=== PATIENT | female | born 1970 | race Caucasian/White ===

== ENCOUNTER → 2017-03-15 | Outpatient (CLI) | payer OTHER ==
[~2017-03-15] MED LIST: DRV100; WELLBUTRIN
[2017-03-15 12:55] LABS: BASO % 0.2 %; BASO ABS # 0.02 K/uL (0-0.2); COMPLETE YES; EOS % 2.2 %; HEMATOCRIT 35.1 % (37-47); IG% 0.3 %; LYMPH % 15.6 %; LYMPH ABS # 1.71 K/uL (1.2-3.4); MEAN CELL VOLUME 75.5 fL (80-100); MEAN CORPUSCULAR HEMOGLOBIN 23.7 pg (25-34); MEAN CORPUSCULAR HGB CONC 31.3 g/dl (32-36); MEAN PLATELET VOLUME 10.7 fL (7.4-10.4); MONO % 6.9 %; NEUT % 74.8 %; PLATELET COUNT 348 K/uL (130-400); RED BLOOD COUNT 4.65 M/uL (4.2-5.4); WHITE BLOOD COUNT 10.98 K/uL (4.8-10.8)
[2017-03-15 13:24] LABS: ALT/SGPT 18 U/L (12-78); AST/SGOT 13 U/L (15-37); BLOOD UREA NITROGEN 15 mg/dl (7-18); BUN/CREATININE RATIO 18.6 (10-20); CALCIUM 8.7 mg/dl (8.5-10.1); CARBON DIOXIDE 23 mmol/L (21-32); CHLORIDE 110 mmol/L (98-107); CHOLESTEROL 167 mg/dl (0-200); CREATININE 0.83 mg/dl (0.60-1.20); GLUCOSE 90 mg/dl (70-99); SODIUM 140 mmol/L (136-145); TRIGLYCERIDES 67 mg/dl (0-150); VERY LOW DENSITY LIPOPROT CALC 13 mg/dl
[2017-03-15 13:34] LABS: ALKALINE PHOSPHATASE 91 U/L (45-117); CHOLESTEROL/HDL RATIO 2.7; HDL CHOLESTEROL 62 mg/dl; LDL CHOLESTEROL CALCULATED 92 mg/dl
== END | disposition home or self-care (01) ==
LOC: C.LABPVFM 11:00
PROVIDERS: ATTEND Nurse Practitioner Family
DX: Z00.00 Encounter for general adult medical examination without abnormal findings (principal); R53.83 Other fatigue

== ENCOUNTER → 2017-03-19 | Outpatient (CLI) | payer OTHER ==
[2017-03-19 18:23] LABS: FERRITIN 8.7 ng/ml (8.0-388.0)
== END | disposition home or self-care (01) ==
LOC: C.LABPVFM 15:32
PROVIDERS: ATTEND Nurse Practitioner Family
DX: E55.9 Vitamin D deficiency, unspecified (principal); D64.9 Anemia, unspecified

== ENCOUNTER 2017-03-23 20:13 | Emergency (ER) | payer OTHER ==
[~2017-03-23] VITALS: Ht 170.2 cm; Wt 90.4 kg
[2017-03-23 20:16] VITALS: Ht 170.2 cm; Wt 90.4 kg
[2017-03-23] MEDS ORDERED: SODIUM CHLORIDE 0.9% 1000ML 2,000 ML IV STA (20:40)
[2017-03-23] MEDS ORDERED: ONDANSETRON INJ 2 MG/ML 2 ML VIAL IV STA (20:40)
[2017-03-23 20:50] LABS: BASO % 0.5 %; BASO ABS # 0.06 K/uL (0-0.2); EOS % 1.5 %; HEMATOCRIT 38.1 % (37-47); IG% 0.3 %; LYMPH % 18.2 %; LYMPH ABS # 1.99 K/uL (1.2-3.4); MEAN CELL VOLUME 76.4 fL (80-100); MEAN CORPUSCULAR HEMOGLOBIN 23.8 pg (25-34); MEAN CORPUSCULAR HGB CONC 31.2 g/dl (32-36); MEAN PLATELET VOLUME 10.5 fL (7.4-10.4); MONO % 8.7 %; NEUT % 70.8 %; PLATELET COUNT 388 K/uL (130-400); RED BLOOD COUNT 4.99 M/uL (4.2-5.4); WHITE BLOOD COUNT 10.93 K/uL (4.8-10.8)
[2017-03-23 21:01] LABS: URINE APPEARANCE CLEAR (CLEAR); URINE BILIRUBIN NEG (NEG); URINE COLOR YELLOW; URINE EPITHELIAL CELL AUTO 0-5 /lpf (0-5); URINE NITRITE NEG (NEG); URINE PH 6.5 (4.5-7.5); URINE SPECIFIC GRAVITY 1.011 (1.000-1.030); UROBILINOGEN NEG (NEG); ZZUR CULT IF INDIC CLEAN CATCH NO
[2017-03-23 21:04] LABS: BLOOD UREA NITROGEN 14 mg/dl (7-18); GLUCOSE 89 mg/dl (70-99)
[2017-03-23 21:05] LABS: ALT/SGPT 20 U/L (12-78); BUN/CREATININE RATIO 13.9 (10-20); CALCIUM 8.8 mg/dl (8.5-10.1); CARBON DIOXIDE 25 mmol/L (21-32); CHLORIDE 107 mmol/L (98-107); POTASSIUM 3.5 mmol/L (3.5-5.1); SODIUM 140 mmol/L (136-145)
--- NOTE | 2017-03-23 21:07 | DIAGNOSTIC IMAGING REPORT ---
CHEST ONE VIEW PORTABLE CLINICAL HISTORY: Shortness of breath. COMPARISON STUDY: No previous studies for comparison. FINDINGS: The lung volumes are normal. Lungs are clear. No pneumothorax or pleural effusion is present. Cardiac size is normal. Mediastinal contours are normal. There is no evidence of pulmonary edema. IMPRESSION: No acute cardiopulmonary findings. Electronically signed by: Todd Simpson M.D. 03/23/2017 9:05 PM Dictated Date/Time: 03/23/2017 9:05 PM
[2017-03-23 21:09] LABS: ALKALINE PHOSPHATASE 90 U/L (45-117); AST/SGOT 15 U/L (15-37)
[2017-03-23 21:17] LABS: MANUAL MICROSCOPIC REQUIRED? NO; REVIEW REQ? NO
[2017-03-23 21:25] LABS: ANISOCYTOSIS PRESENT; COMPLETE YES
[2017-03-23] MEDS ORDERED: MOME200A INH (22:09)
[2017-03-23] MEDS ORDERED: DILT1TAB50 PO (22:09)
[2017-03-23] MEDS ORDERED: QUET1TAB34 PO (22:09)
[2017-03-23] MEDS ORDERED: FERR1TAB61 PO (22:09)
[2017-03-23] MEDS ORDERED: ERGO500037 PO (22:09)
[2017-03-23 22:55] VITALS: BP 181/118; PULSE 98; TEMP 37.5; O2SAT 98
--- NOTE | 2017-03-24 00:44 | EMERGENCY ROOM VISIT NOTE ---
History Report prepared by Callie: Micheal Colón Under the Supervision of: Jimenez MuseO. First contact with patient: 20:24 Chief Complaint: HYPERTENSION Stated Complaint: POSSIBLE HEART ATTACK History of Present Illness The patient is a 46 year old female who presents to the Emergency Room with complaints of constant hypertension beginning about 2 hours ago. The patient states her blood pressure medication was switched from Cardizem to Diltazem. She reports since the switch, her hypertension has not been controllable. The patient notes she became short of breath and nauseous when her blood pressure mary earlier. She states she has a history of COPD, so she used her inhaler, and her shortness of breath resolved. She notes her shortness of breath was her typical asthma flare. This was unchanged in any way. The patient reports she just started her menstrual period, and she did not know if this was the cause. She notes she has a history of hypertension, Bipolar disorder, and she is a current smoker. Pt denies headache, rashes, change in vision, fevers, chest pain, vomiting, diarrhea, pain with urination, recent trips, recent surgery, edema to her legs, coughing up blood, and sorethroat. She also denies a history of diabetes and high cholesterol. She denies any cough, runny nose or abdominal pain. She denies any fevers. No open wounds or sores. Source of History: patient Onset: 2 hours ago Position: other (global) Quality: other (hypertension) Timing: constant Associated Symptoms: + nausea, No fevers, No headache, No sorethroat, No chest pain, No SOB (resolved), No vomiting, No diarrhea, No rash Note: Denies: change in vision, pain with urination, recent trips, recent surgery, edema to her legs, coughing up blood Review of Systems See HPI for pertinent positives & negatives. A total of 10 systems reviewed and were otherwise negative. Past Medical & Surgical Medical Problems: (1) Asthma (2) Bleeding (3) Empyema (4) HTN (hypertension) (5) Kidney stone Family History Diabetes mellitus Heart disease Hypertension Kidney disease Kidney stones Social History Smoking Status: Current Every Day Smoker Smokeless Tobacco Use: No Alcohol Use: occasionally Marital Status: Occupation Status: unemployed Current/Historical Medications Scheduled Diltiazem HCl Coated Beads (Diltiazem HCl ER), 1 TAB PO DAILY Ergocalciferol (Vitamin D 11551 Unit), 50,000 UNIT PO WK Ferrous Sulfate (Iron), 1 TAB PO BID Mometasone Furoate-Formoterol (Dulera 200/5 Mcg), 2 PUFFS INH BID Quetiapine Fumarate (Seroquel), 100 MG PO DAILY Allergies Coded Allergies: Codeine (Unverified Allergy, Unknown, HIVES, 07/14/09) Sulfa Drugs (Unverified Allergy, Unknown, HIVES, 07/14/09) Uncoded Allergies: SULFA, SHELLFISH, TYLENOL #3 (Allergy, Unknown, 11/20/02) Physical Exam Vital Signs Date Time Temp Pulse Resp B/P (MAP) Pulse Ox O2 Delivery O2 Flow Rate FiO2 03/23/17 22:55 37.5 98 21 170/123 98 181/118 03/23/17 22:00 93 16 181/121 98 Room Air 03/23/17 21:07 96 18 199/122 96 190/115 03/23/17 20:41 101 03/23/17 20:16 37.9 116 16 175/123 99 Room Air Physical Exam GENERAL: Sitting up in bed, no distress, non-toxic EYE EXAM: normal conjunctiva OROPHARYNX: no exudate, no erythema, lips, buccal mucosa, and tongue normal and mucous membranes are moist NECK: supple, no nuchal rigidity, no adenopathy, non-tender LUNGS: Clear to auscultation. Normal chest wall mechanics HEART: no murmurs, S1 normal and S2 normal ABDOMEN: abdomen soft, non-tender, normo-active bowel sounds, no masses, no rebound or guarding. BACK: Back is symmetrical on inspection and there is no deformity, no midline tenderness, no CVA tenderness. SKIN: no rashes and no bruising UPPER EXTREMITIES: upper extremities are grossly normal. LOWER EXTREMITIES: No pitting edema. NEURO EXAM: Normal sensorium, cranial nerves II-XII intact, normal speech, no weakness of arms, no weakness of legs. No drift. Finger to nose intact. Gross sensation intact. Medical Decision & Procedures ER Provider Diagnostic Interpretation: Radiology results as stated below per my review and the radiologist's interpretation: CHEST ONE VIEW PORTABLE CLINICAL HISTORY: Shortness of breath. COMPARISON STUDY: No previous studies for comparison. FINDINGS: The lung volumes are normal. Lungs are clear. No pneumothorax or pleural effusion is present. Cardiac size is normal. Mediastinal contours are normal. There is no evidence of pulmonary edema. IMPRESSION: No acute cardiopulmonary findings. Electronically signed by: Todd Simpson M.D. 03/23/2017 9:05 PM Dictated Date/Time: 03/23/2017 9:05 PM Laboratory Results 03/23/17 20:30 Red Blood Count 4.99, Mean Corpuscular Volume 76.4, Mean Corpuscular Hemoglobin 23.8, Mean Corpuscular Hemoglobin Concent 31.2, Mean Platelet Volume 10.5, Neutrophils (%) (Auto) 70.8, Lymphocytes (%) (Auto) 18.2, Monocytes (%) (Auto) 8.7, Eosinophils (%) (Auto) 1.5, Basophils (%) (Auto) 0.5, Neutrophils # (Auto) 7.74, Lymphocytes # (Auto) 1.99, Monocytes # (Auto) 0.95, Eosinophils # (Auto) 0.16, Basophils # (Auto) 0.06 03/23/17 20:30 Test 03/23/17 20:30 White Blood Count 10.93 K/uL (4.8-10.8) Red Blood Count 4.99 M/uL (4.2-5.4) Hemoglobin 11.9 g/dL (12.0-16.0) Hematocrit 38.1 % (37-47) Mean Corpuscular Volume 76.4 fL (80-100) Mean Corpuscular Hemoglobin 23.8 pg (25-34) Mean Corpuscular Hemoglobin Concent 31.2 g/dl (32-36) Platelet Count 388 K/uL (130-400) Mean Platelet Volume 10.5 fL (7.4-10.4) Neutrophils (%) (Auto) 70.8 % Lymphocytes (%) (Auto) 18.2 % Monocytes (%) (Auto) 8.7 % Eosinophils (%) (Auto) 1.5 % Basophils (%) (Auto) 0.5 % Neutrophils # (Auto) 7.74 K/uL (1.4-6.5) Lymphocytes # (Auto) 1.99 K/uL (1.2-3.4) Monocytes # (Auto) 0.95 K/uL (0.11-0.59) Eosinophils # (Auto) 0.16 K/uL (0-0.5) Basophils # (Auto) 0.06 K/uL (0-0.2) RDW Standard Deviation 54.3 fL (36.4-46.3) RDW Coefficient of Variation 20.0 % (11.5-14.5) Immature Granulocyte % (Auto) 0.3 % Immature Granulocyte # (Auto) 0.03 K/uL (0.00-0.02) Anisocytosis PRESENT Urine Color YELLOW Urine Appearance CLEAR (CLEAR) Urine pH 6.5 (4.5-7.5) Urine Specific [place] 1.011 (1.000-1.030) Urine Protein NEG (NEG) Urine Glucose (UA) NEG (NEG) Urine Ketones NEG (NEG) Urine Occult Blood NEG (NEG) Urine Nitrite NEG (NEG) Urine Bilirubin NEG (NEG) Urine Urobilinogen NEG (NEG) Urine Leukocyte Esterase TRACE (NEG) Urine WBC (Auto) 1-5 /hpf (0-5) Urine RBC (Auto) 0-4 /hpf (0-4) Urine Hyaline Casts (Auto) 0 /lpf (0-5) Urine Epithelial Cells (Auto) 0-5 /lpf (0-5) Urine Bacteria (Auto) NEG (NEG) Urine Test NEG (NEG) Anion Gap 8.0 mmol/L (3-11) Est Creatinine Clear Calc Drug Dose 81.2 ml/min Estimated GFR () 78.2 Estimated GFR (Non- 67.5 BUN/Creatinine Ratio 13.9 (10-20) Calcium Level 8.8 mg/dl (8.5-10.1) Total Bilirubin 0.3 mg/dl (0.2-1) Direct Bilirubin < 0.1 mg/dl (0-0.2) Aspartate Amino Transf (AST/SGOT) 15 U/L (15-37) Alanine Aminotransferase (ALT/SGPT) 20 U/L (12-78) Alkaline Phosphatase 90 U/L (45-117) Troponin I < 0.015 ng/ml (0-0.045) Total Protein 7.8 gm/dl (6.4-8.2) Albumin 4.0 gm/dl (3.4-5.0) Lipase 159 U/L (73-393) Laboratory results per my review. Medications Administered Medications (Trade) Dose Ordered Sig/Rian Route Start Time Stop Time Status Last Admin Dose Admin Sodium Chloride 2,000 ml @ 999 mls/hr Q2H1M STAT IV 03/23/17 20:40 03/23/17 22:40 DC 03/23/17 21:05 999 MLS/HR Ondansetron HCl (Zofran Inj) 4 mg NOW STAT IV 03/23/17 20:40 03/23/17 20:41 DC 03/23/17 21:06 4 MG ECG Indication: other (HTN) Rate (beats per minute): 102 Rhythm: sinus tachycardia Findings: no ectopy, other (normal axis) ED Course ED COURSE: Vital signs were reviewed and showed hypertension and tachycardia. The patients medical record was reviewed The above diagnostic studies were performed and reviewed. ED treatments and interventions as stated above. 2031: The patient was evaluated in room B09. A complete history and physical examination was performed. 2039: Ordered Ondansetron HCl 4mg IV, Sodium Chloride 2000 ml @ 999 mls/hr IV 2220: Upon reevaluation, the patient is feeling fine, anxious, and wants to go home. She declined a second troponin. I discussed my findings with the patient and she understands and agrees with the treatment plan. Based on the patients age, coexisting illnesses, exam and lab findings the decision to treat as an outpatient was made. The patient remained stable while under my care. The patient appeared well at the time of discharge. Medical Decision Differential diagnoses includes but is not limited to pneumonia, bronchitis, COPD/Asthma exacerbation, pneumothorax, pulmonary embolism, congestive heart failure, acute coronary syndrome. Patient is a 46-year-old female who presents to ER for hypertension. She was checking her blood pressure at home, was elevated. She does note that around 5 PM tonight she became short of breath. She notes it was one of her typical asthma flares that resolved with that treatment. Patient denies any chest pain. No weakness or numbness in arms legs. No confusion. CBC shows a white count of 10.9 thousand. BMP all LFTs, bilirubin and lipase was unremarkable. Troponin was negative. UA was negative. was negative. Chest x-ray was unremarkable. Patient blood pressure did trend down without intervention. She was slightly tachycardic. Each time someone entered the room she became very anxious as she notes she does not like hospitals. Her heart rate was in the 90s. Temperature was 37.7. She has absolutely no other symptoms. UA was negative. Chest x-ray unremarkable. No signs of infection. Does have a low- grade temperature but not technically a fever. Favor tachycardia secondary to anxiety as she is crying in the ER. She notes no shortness of breath since 5 PM. Recommended at least repeating a troponin but she requested to be discharged as she does not want to be her anymore as she is becoming more anxious. She was discharged following informed refusal of care. Discussed with Pt concerning signs and symptoms to watch out for. Pt was instructed to follow up with their PCP and discussed with the patient their option to return to the ED at anytime for persistent or worsening symptoms. The appropriate anticipatory guidance and out-patient management, including indications for return to the emergency department, were explained at length to the patient and understood. Medication Reconcilliation Current Medication List: was personally reviewed by me Blood Pressure Screening Patient's blood pressure: Elevated blood pressure Blood pressure disposition: Referred to PCP Impression Primary Impression: HTN (hypertension) Additional Impression: Tachycardia Scribe Attestation The scribe's documentation has been prepared under my direction and personally reviewed by me in its entirety. I confirm that the note above accurately reflects all work, treatment, procedures, and medical decision making performed by me. Departure Information Dispostion Home / Self-Care Referrals Harmony SadlerPCris (PCP) Forms HOME CARE DOCUMENTATION FORM, IMPORTANT VISIT INFORMATION, WORK / SCHOOL INSTRUCTIONS Patient Instructions ED HTN Established, My [facility] Additional Instructions Please follow up with your primary care doctor within 24 hours. Any worsening of your symptoms, please return to the ED immediately. This includes any fevers greater than 100.4, worsening pain, chest pain, shortness breath, persistent nausea, vomiting, unable to eat or drink, or any other concerning signs or symptoms from your standpoint. Your found to have a low-grade fever. Please have this followed up on indications started having any additional symptoms. This could be a sign of an early infection. Problem Qualifiers Primary Impression: HTN (hypertension) Hypertension type: unspecified Qualified Codes: I10 - Essential (primary) hypertension
== END 2017-03-23 22:55 | disposition home or self-care (01) ==
LOC: C.EDB 20:14
DX: I10 Essential (primary) hypertension (principal); R00.0 Tachycardia, unspecified; F17.200 Nicotine dependence, unspecified, uncomplicated; J45.909 Unspecified asthma, uncomplicated; F31.9 Bipolar disorder, unspecified; Z87.442 Personal history of urinary calculi; Z83.3 Family history of diabetes mellitus; Z82.49 Family history of ischemic heart disease and other diseases of the circulatory system; Z84.1 Family history of disorders of kidney and ureter; Z79.899 Other long term (current) drug therapy

== ENCOUNTER → 2017-05-07 | Outpatient (CLI) | payer OTHER ==
[~2017-05-07] MED LIST changes: +DILT1TAB50 PO; -DRV100; +ERGO500037 PO; +FERR1TAB61 PO; +MOME200A INH; +QUET1TAB34 PO; -WELLBUTRIN
[2017-05-07 17:48] LABS: HEMATOCRIT 40.1 % (37-47); MEAN CELL VOLUME 78.5 fL (80-100); MEAN CORPUSCULAR HEMOGLOBIN 25.4 pg (25-34); MEAN CORPUSCULAR HGB CONC 32.4 g/dl (32-36); MEAN PLATELET VOLUME 10.8 fL (7.4-10.4); PLATELET COUNT 314 K/uL (130-400); RED BLOOD COUNT 5.11 M/uL (4.2-5.4); WHITE BLOOD COUNT 10.05 K/uL (4.8-10.8)
[2017-05-07 18:13] LABS: BLOOD UREA NITROGEN 13 mg/dl (7-18); CREATININE 0.97 mg/dl (0.60-1.20); GLUCOSE 85 mg/dl (70-99)
[2017-05-07 18:14] LABS: BUN/CREATININE RATIO 13.3 (10-20); CALCIUM 8.8 mg/dl (8.5-10.1); CARBON DIOXIDE 26 mmol/L (21-32); CHLORIDE 103 mmol/L (98-107); POTASSIUM 3.8 mmol/L (3.5-5.1); SODIUM 134 mmol/L (136-145)
== END | disposition home or self-care (01) ==
LOC: C.LABPVFM 14:15
PROVIDERS: ATTEND Nurse Practitioner Family
DX: D50.9 Iron deficiency anemia, unspecified (principal); I10 Essential (primary) hypertension; E55.9 Vitamin D deficiency, unspecified

== ENCOUNTER 2017-07-30 11:31 | Emergency (ER) | payer OTHER ==
[~2017-07-30] VITALS: Ht 172.7 cm; Wt 86.0 kg
[2017-07-30 11:34] VITALS: TEMP 37.1; Ht 172.7 cm; Wt 86.0 kg
[2017-07-30] MEDS ORDERED: PROCHLORPERAZINE 5 MG/ML 2 ML VIAL IV STA (12:10)
[2017-07-30] MEDS ORDERED: KETOROLAC TROMETHAMINE 30 MG/ML VIAL IV STA (12:10)
[2017-07-30] MEDS ORDERED: DiphenhydrAMINE HCL 50 MG/ML VIAL IV STA (12:10)
[2017-07-30 12:46] LABS: BASO % 0.4 %; BASO ABS # 0.03 K/uL (0-0.2); EOS % 1.6 %; EOS ABS # 0.11 K/uL (0-0.5); HEMOGLOBIN 14.4 g/dL (12.0-16.0); IG# 0.02 K/uL (0.00-0.02); LYMPH % 12.8 %; LYMPH ABS # 0.89 K/uL (1.2-3.4); MEAN CELL VOLUME 84.6 fL (80-100); MEAN CORPUSCULAR HEMOGLOBIN 28.3 pg (25-34); MEAN CORPUSCULAR HGB CONC 33.5 g/dl (32-36); MEAN PLATELET VOLUME 10.1 fL (7.4-10.4); MONO % 7.5 %; MONO ABS # 0.52 K/uL (0.11-0.59); NEUT % 77.4 %; NEUT ABS # 5.37 K/uL (1.4-6.5); PLATELET COUNT 281 K/uL (130-400); RED CELL DISTRIBUTION WIDTH CV 18.1 % (11.5-14.5); WHITE BLOOD COUNT 6.94 K/uL (4.8-10.8)
[2017-07-30 13:09] LABS: CALCIUM 8.9 mg/dl (8.5-10.1); POTASSIUM 3.3 mmol/L (3.5-5.1)
--- NOTE | 2017-07-30 13:15 | DIAGNOSTIC IMAGING REPORT ---
CT HEAD WITHOUT CONTRAST (CT) CLINICAL HISTORY: Severe headache COMPARISON STUDY: No previous studies for comparison. TECHNIQUE: Axial CT of the brain is performed from the vertex to the skull base. IV contrast was not administered for this examination. A dose lowering technique was utilized adhering to the principles of ALARA. CT DOSE: 537.48 mGy.cm FINDINGS: No intra or extra-axial mass lesions are visualized. There is no CT evidence of acute cortical infarction. There is no evidence of midline shift. There is no acute hemorrhage. No calvarial fractures are visualized. There are patchy white matter hypodensities likely on a small vessel basis. There are left cerebellar hypodensities, likely secondary to areas of prior infarction There is no evidence of pathologic ventricular dilatation. There is no evidence of acute sinusitis IMPRESSION: 1. No evidence of acute hemorrhage 2. Left cerebellar hypodensities, likely secondary to areas of prior infarction Electronically signed by: Edwin Sahni M.D. 07/30/2017 1:14 PM Dictated Date/Time: 07/30/2017 1:13 PM
[2017-07-30] MEDS ORDERED: ESCI1TAB9 PO (13:22)
[2017-07-30] MEDS ORDERED: VNTHFA/IN INH (13:22)
[2017-07-30] MEDS ORDERED: CHOL2000 PO (13:22)
[2017-07-30] MEDS ORDERED: HYDR25TA4 PO (13:22)
[2017-07-30] MEDS ORDERED: ASPIRIN 81 MG CHEW PO STA (14:09)
[2017-07-30 14:23] VITALS: BP 135/107; PULSE 90; O2SAT 97
--- NOTE | 2017-07-30 17:58 | EMERGENCY ROOM VISIT NOTE ---
History Report prepared by Callie: Sal Mojica Under the Supervision of: Dr. Migel Price D.O. First contact with patient: 11:56 Chief Complaint: HYPERTENSION Stated Complaint: HIGH BLOOD PRESSURE History of Present Illness The patient is a 47 year old female who presents to the Emergency Room with complaints of hypertension that was recorded this morning. Her blood pressure was recorded at 170/130 per the patient's daughter who is a MAT MACHINE OPERATOR. She has a past medical history of asthma, emphysema, and hypertension. Yesterday, the patient started to not feel well with a left ear ache. Today, she woke up and believed that she was hypertensive. She called her daughter who came and took her blood pressure. They then called her PCP who referred her to the ER for further evaluation. On her way here, the patient became nauseated with a frontal headache. She is also experiencing some "fogginess" as well. Pt denies change in vision, fevers, rhinorrhea, cough, chest pain, shortness of breath, vomiting , abdominal pain, diarrhea, pain with urination, and melena. Source of History: patient Onset: this morning Position: other (Global) Symptom Intensity: 170/130 Quality: other (HTN) Timing: constant Associated Symptoms: + headache, + nausea, No fevers, No cough, No chest pain, No SOB, No vomiting, No abdominal pain, No melena, No diarrhea, No urinary symptoms Note: She has a left ear ache and is having some "fogginess." Review of Systems See HPI for pertinent positives & negatives. A total of 10 systems reviewed and were otherwise negative. Past Medical & Surgical Medical Problems: (1) Asthma (2) Bleeding (3) Empyema (4) HTN (hypertension) (5) Kidney stone Family History Diabetes mellitus Heart disease Hypertension Kidney disease Kidney stones Social History Smoking Status: Current Every Day Smoker Alcohol Use: occasionally Marital Status: Occupation Status: unemployed Current/Historical Medications Scheduled Cholecalciferol (Vitamin D3), 1 CAP PO DAILY Diltiazem HCl Coated Beads (Diltiazem HCl ER), 1 TAB PO DAILY Escitalopram Oxalate (Lexapro), 10 MG PO DAILY Ferrous Sulfate (Iron), 1 TAB PO BID Hydrochlorothiazide (Hctz), 25 MG PO DAILY Mometasone Furoate-Formoterol (Dulera 200/5 Mcg), 2 PUFFS INH BID Quetiapine Fumarate (Seroquel), 100 MG PO DAILY Scheduled PRN Albuterol Hfa (Ventolin Hfa), 2-4 PUFFS INH Q6H PRN for Shortness of Breath Allergies Coded Allergies: Sulfamethoxazole w/Trimethoprim (Unverified Allergy, Severe, ANAPHYLAXIS, 07/30/17) Codeine (Unverified Allergy, Unknown, HIVES, 07/30/17) Shellfish Allergy (Unverified Allergy, Unknown, ., 07/30/17) Sulfa Drugs (Unverified Allergy, Unknown, HIVES, 07/30/17) Physical Exam Vital Signs Date Time Temp Pulse Resp B/P (MAP) Pulse Ox O2 Delivery O2 Flow Rate FiO2 07/30/17 14:23 90 135/107 97 Room Air 07/30/17 14:07 81 07/30/17 13:51 82 24 155/99 96 Room Air 07/30/17 11:34 37.1 115 20 171/109 98 Room Air Physical Exam GENERAL: Sitting up in bed, alert, well appearing, well nourished, no distress, non-toxic EYE EXAM: normal conjunctiva. PERRL and EOM's intact. OROPHARYNX: no exudate, no erythema, lips, buccal mucosa, and tongue normal and mucous membranes are moist NECK: supple, no nuchal rigidity, no adenopathy, non-tender LUNGS: Clear to auscultation. Normal chest wall mechanics HEART: no murmurs, S1 normal and S2 normal ABDOMEN: abdomen soft, non-tender, normo-active bowel sounds, no masses, no rebound or guarding. BACK: Back is symmetrical on inspection and there is no deformity, no midline tenderness, no CVA tenderness. SKIN: no rashes and no bruising UPPER EXTREMITIES: upper extremities are grossly normal. LOWER EXTREMITIES: No pitting edema. NEURO EXAM: Normal sensorium, cranial nerves II-XII intact, normal speech, no weakness of arms, no weakness of legs. No drift. Finger to nose intact. Gross sensation intact. Medical Decision & Procedures ER Provider Diagnostic Interpretation: Radiology results as stated below per my review and the radiologist's interpretation: CT HEAD WITHOUT CONTRAST (CT) CLINICAL HISTORY: Severe headache COMPARISON STUDY: No previous studies for comparison. TECHNIQUE: Axial CT of the brain is performed from the vertex to the skull base. IV contrast was not administered for this examination. A dose lowering technique was utilized adhering to the principles of ALARA. CT DOSE: 537.48 mGy.cm FINDINGS: No intra or extra-axial mass lesions are visualized. There is no CT evidence of acute cortical infarction. There is no evidence of midline shift. There is no acute hemorrhage. No calvarial fractures are visualized. There are patchy white matter hypodensities likely on a small vessel basis. There are left cerebellar hypodensities, likely secondary to areas of prior infarction There is no evidence of pathologic ventricular dilatation. There is no evidence of acute sinusitis IMPRESSION: 1. No evidence of acute hemorrhage 2. Left cerebellar hypodensities, likely secondary to areas of prior infarction Electronically signed by: Edwin Sahni M.D. 07/30/2017 1:14 PM Dictated Date/Time: 07/30/2017 1:13 PM Laboratory Results 07/30/17 12:25 Red Blood Count 5.08, Mean Corpuscular Volume 84.6, Mean Corpuscular Hemoglobin 28.3, Mean Corpuscular Hemoglobin Concent 33.5, Mean Platelet Volume 10.1, Neutrophils (%) (Auto) 77.4, Lymphocytes (%) (Auto) 12.8, Monocytes (%) (Auto) 7.5, Eosinophils (%) (Auto) 1.6, Basophils (%) (Auto) 0.4, Neutrophils # (Auto) 5.37, Lymphocytes # (Auto) 0.89, Monocytes # (Auto) 0.52, Eosinophils # (Auto) 0.11, Basophils # (Auto) 0.03 07/30/17 12:25 Test 07/30/17 12:25 White Blood Count 6.94 K/uL (4.8-10.8) Red Blood Count 5.08 M/uL (4.2-5.4) Hemoglobin 14.4 g/dL (12.0-16.0) Hematocrit 43.0 % (37-47) Mean Corpuscular Volume 84.6 fL (80-100) Mean Corpuscular Hemoglobin 28.3 pg (25-34) Mean Corpuscular Hemoglobin Concent 33.5 g/dl (32-36) Platelet Count 281 K/uL (130-400) Mean Platelet Volume 10.1 fL (7.4-10.4) Neutrophils (%) (Auto) 77.4 % Lymphocytes (%) (Auto) 12.8 % Monocytes (%) (Auto) 7.5 % Eosinophils (%) (Auto) 1.6 % Basophils (%) (Auto) 0.4 % Neutrophils # (Auto) 5.37 K/uL (1.4-6.5) Lymphocytes # (Auto) 0.89 K/uL (1.2-3.4) Monocytes # (Auto) 0.52 K/uL (0.11-0.59) Eosinophils # (Auto) 0.11 K/uL (0-0.5) Basophils # (Auto) 0.03 K/uL (0-0.2) RDW Standard Deviation 56.0 fL (36.4-46.3) RDW Coefficient of Variation 18.1 % (11.5-14.5) Immature Granulocyte % (Auto) 0.3 % Immature Granulocyte # (Auto) 0.02 K/uL (0.00-0.02) Anion Gap 5.0 mmol/L (3-11) Est Creatinine Clear Calc Drug Dose 79.8 ml/min Estimated GFR () 77.7 Estimated GFR (Non- 67.0 BUN/Creatinine Ratio 12.1 (10-20) Calcium Level 8.9 mg/dl (8.5-10.1) Laboratory results per my review. Medications Administered Medications (Trade) Dose Ordered Sig/Rian Route Start Time Stop Time Status Last Admin Dose Admin Ketorolac Tromethamine (Toradol Inj) 30 mg NOW STAT IV 07/30/17 12:10 07/30/17 12:12 DC 07/30/17 12:28 30 MG Diphenhydramine HCl (Benadryl Inj) 50 mg NOW STAT IV 07/30/17 12:10 07/30/17 12:11 DC 07/30/17 12:28 50 MG Prochlorperazine Edisylate (Compazine Inj) 5 mg NOW STAT IV 07/30/17 12:10 07/30/17 12:11 DC 07/30/17 12:27 5 MG ECG Per My Interpretation Indication: tachycardia Rate (beats per minute): 80 Rhythm: sinus rhythm Findings: other (No PVC, normal axis) ED Course ED COURSE: Vital signs were reviewed and showed tachycardic and hypertensive The patients medical record was reviewed The above diagnostic studies were performed and reviewed. ED treatments and interventions as stated above. 1156: The patient was evaluated in room C2. A complete history and physical examination was performed. 1210: ordered Compazine Inj 5 mg IV, Benadryl Inj 50 mg IV, Toradol Inj 30 mg IV 1408: The patient is adamantly declining further inpatient treatment at this time and would like to go home. Her daughter and her are at bedside and are unable to convince her. 1409: Ordered Aspirin 81 mg PO 1426: Upon reevaluation, the patient is resting. I discussed my findings with the patient and she understands and agrees with the treatment plan. The patient remained stable while under my care. The patient appeared well at the time of discharge. Medical Decision Differential Diagnosis includes but is not limited to headache, tension headache , cluster headache, migraine, subarachnoid hemorrhage, meningitis, mass, central venous thrombus, concussion, trauma and epidural/subdural hemorrhage. Patient is a 47-year-old female who presents to ER for headache associated with hypertension. She has had intermittent headaches over the past 3 days. Patient is completely neurologically intact. Patient was hypertensive with systolics in the 170s and diastolics in 120. She has been taking her medications. She denies any other complaints with exception of mild left ear pain. CBC and BMP show a mild hypokalemia. CT head shows cerebellar hypodensities suggesting infarcts. Based on this and her symptoms I did recommend admission but she had been declined. She was given Toradol, Benadryl and Compazine and her blood pressure did trend down her headache improved significantly. Daughter and were at bedside and all 3 understood the risks and no one was able to convince her to stay. Did instruct her to take aspirin daily. 2. The stroke is likely old as she has no focal deficit but do believe she would benefit from a complete workup. The patient requested to leave. I considered this to be leaving against medical advice. I personally discussed the following with them. They currently had a medical condition of: cva and I am concerned that they have stroke despite being neurologically intact. My proposed course of evaluation and treatment and that of any consultants is: Admission. Benefits would include: Possibly preventing additional strokes, which if identified early would lead to appropriate intervention in a timely manner lessing the burden of disability and . Risks of leaving before this had been completed include: misdiagnosis, worsening illness leading up to and including prolonged or permanent disability or . Specific risks pertinent, but not all inclusive, of their current medical condition include but are not limited to: I also discussed alternatives including: disability Despite this they stated they wanted to leave due to no liking hospitals and refused further evaluation, treatment, or admission at this time. They appear clinically sober, to be mentating appropriately, free from distracting injury, have controlled pain, appear to have intact insight, judgment, and reason and in my opinion have the capacity to make this decision. Specifically, they were able to verbally state back in a coherent manner their current medical condition/current diagnosis, the proposes course of treatment, and the risks, benefits, and alternatives of treatment versus leaving against medical advice. They understand that they may return to seek medical attention here at whatever time they want. I highly advised them to return to the Emergency Department immediately if they experienced any: weakness or numbness, reconsidered treatment a/o admission, or had any other concerns. This would be without any repercussions. I recommended they follow-up with PCP within 24 hours for further evaluation and treatment. They were discharged against medical advice Medication Reconcilliation Current Medication List: was personally reviewed by me Blood Pressure Screening Patient's blood pressure: Elevated blood pressure Blood pressure disposition: Referred to PCP Impression Primary Impression: CVA (cerebral vascular accident) Additional Impression: HTN (hypertension) Scribe Attestation The scribe's documentation has been prepared under my direction and personally reviewed by me in its entirety. I confirm that the note above accurately reflects all work, treatment, procedures, and medical decision making performed by me. Departure Information Dispostion Home / Self-Care Referrals Harmony Sadler (PCP) Forms HOME CARE DOCUMENTATION FORM, IMPORTANT VISIT INFORMATION, WORK / SCHOOL INSTRUCTIONS Patient Instructions ED HTN Established, ED Stroke Completed, My [facility], Stroke Risk Factors Additional Instructions Please follow up with your primary care doctor with in the next 24 hours. Any worsening of your symptoms, please return to the ED immediately. This includes any fevers greater than 100.4, worsening pain, chest pain, shortness breath, persistent nausea, vomiting, unable to eat or drink, or any other concerning signs or symptoms from your standpoint. Please make sure you are taking a baby aspirin daily. Please follow-up with your primary care doctor tomorrow as your CAT scan of the head shows old infarcts/stroke in the cerebellar region. Problem Qualifiers Primary Impression: CVA (cerebral vascular accident) CVA mechanism: unspecified Qualified Codes: I63.9 - Cerebral infarction, unspecified Additional Impression: HTN (hypertension) Hypertension type: unspecified Qualified Codes: I10 - Essential (primary) hypertension
== END 2017-07-30 14:28 | disposition left against medical advice (07) ==
LOC: C.EDB 11:32 → C.EDC 14:28
DX: I63.9 Cerebral infarction, unspecified (principal); I10 Essential (primary) hypertension; R00.0 Tachycardia, unspecified; J45.909 Unspecified asthma, uncomplicated; J43.9 Emphysema, unspecified; F17.200 Nicotine dependence, unspecified, uncomplicated; Z87.442 Personal history of urinary calculi; Z83.3 Family history of diabetes mellitus; Z82.49 Family history of ischemic heart disease and other diseases of the circulatory system; Z84.1 Family history of disorders of kidney and ureter; Z88.2 Allergy status to sulfonamides; Z88.6 Allergy status to analgesic agent; Z91.013 Allergy to seafood

== ENCOUNTER 2017-08-06 12:12 | Emergency (ER) | payer OTHER ==
[~2017-08-06] VITALS: Ht 172.7 cm; Wt 87.0 kg
[~2017-08-06 12:12] MED LIST changes: +CHOL2000 PO; -ERGO500037 PO; +ESCI1TAB9 PO; +HYDR25TA4 PO; +VNTHFA/IN INH
[2017-08-06 12:14] VITALS: TEMP 36.8; Ht 172.7 cm; Wt 87.0 kg
[2017-08-06] MEDS ORDERED: SODIUM CHLORIDE 0.9% 1000ML 1,000 ML IV STA (13:26)
[2017-08-06 13:28] VITALS: O2SAT 98
[2017-08-06 13:38] LABS: BASO % 0.2 %; BASO ABS # 0.02 K/uL (0-0.2); EOS % 0.5 %; EOS ABS # 0.05 K/uL (0-0.5); HEMATOCRIT 45.3 % (37-47); HEMOGLOBIN 15.7 g/dL (12.0-16.0); IG# 0.04 K/uL (0.00-0.02); LYMPH % 11.9 %; MEAN CELL VOLUME 85.5 fL (80-100); MEAN CORPUSCULAR HEMOGLOBIN 29.6 pg (25-34); MEAN CORPUSCULAR HGB CONC 34.7 g/dl (32-36); MEAN PLATELET VOLUME 10.2 fL (7.4-10.4); NEUT ABS # 8.24 K/uL (1.4-6.5); PLATELET COUNT 316 K/uL (130-400); RED CELL DISTRIBUTION WIDTH CV 16.6 % (11.5-14.5); RED CELL DISTRIBUTION WIDTH SD 52.7 fL (36.4-46.3); WHITE BLOOD COUNT 10.05 K/uL (4.8-10.8)
--- NOTE | 2017-08-06 13:43 | EMERGENCY ROOM VISIT NOTE ---
ED Visit Note First contact with patient: 13:06 CHIEF COMPLAINT: High blood pressure, decreased hearing in left ear HISTORY OF PRESENTING ILLNESS: This is a 47-year-old female who presents to the emergency department with complaints of her blood pressure being high and having difficulty hearing out of her left ear that started this morning. The patient states she was seen here in the emergency department 1 week ago for the same symptoms, she states "they wanted to admit me, but I decided to go home." Patient states that she was started on new blood pressure medicine 5 days ago, amlodipine 5 mg, she states that her symptoms seemed to improve with the amlodipine, however it has been making her nauseated and giving her diarrhea, so she did not take it yesterday. This morning she woke up with difficulty hearing out of her left ear and checked her blood pressure, stating it was 155/ 105. She did take her other blood pressure medications as well as one half tab of the amlodipine. She states she has been feeling quite anxious today because of her blood pressure being high. She denies any headache, vision changes, neck pain, chest pain, shortness of breath, dizziness or syncope, recent illness , fevers or chills. She has had some associated nausea, but no vomiting. She is a current everyday smoker. She admits to occasional alcohol use and marijuana use, but states she has not had any of this for more than 2 weeks. REVIEW OF SYSTEMS: A complete 10 point review of systems was reviewed with the patient with pertinent positives and negatives as per history of present illness. All else were negative. PAST MEDICAL HISTORY: Hypertension, bipolar, anxiety, CVA SOCIAL HISTORY: Lives at home. Current everyday smoker. Occasional alcohol use , occasional marijuana use. ALLERGIES: Reviewed in chart. PHYSICAL EXAM: CONSTITUTIONAL: Pleasant and cooperative. No acute distress, but appears anxious and is tearful during exam. Moderately dehydrated. HEENT: Normocephalic, atraumatic. Pupils equal, round and reactive to light, EOMI, normal conjunctiva bilaterally. TMs normal bilaterally. Pharynx normal. Dry mucous membranes. NECK: Supple, full active range of motion without discomfort. No cervical adenopathy. RESPIRATORY: Clear to auscultation bilaterally with no wheezing, crackles, rhonchi or stridor. Equal expansion bilaterally. CARDIOVASCULAR: Regular rate and rhythm with no murmurs, rubs or gallops. Normal peripheral perfusion. No edema. GASTROINTESTINAL: Soft, nontender, nondistended. No palpable masses or HSM. Bowel sounds present in all quadrants. MUSCULOSKELETAL: Full range of motion of all joints without discomfort. INTEGUMENTARY: No rash or other significant dermatologic conditions noted. NEUROLOGIC: Alert and oriented X 4 with normal affect. Cranial nerves II-XII grossly intact, no facial droop, no pronator drift. No focal neurologic deficits noted. 5/5 strength in all 4 extremities, sensation intact to light touch 4 extremities. Able to distinguish light snapping from both ears, but states the left ear is more quiet. Normal speech. Normal gait observed. Normal [id number]-[id number] testing, negative Romberg. ED COURSE AND MEDICAL DECISION MAKING: CC: Patient presenting with complaint of high blood pressure, left ear hearing loss DIFFERENTIAL DIAGNOSIS: Includes, but not limited to hypertension, hypertensive urgency, CVA, ACS, otitis, among others. INTERPRETATION OF LABS: No leukocytosis, no anemia, hypokalemia, no other significant lichenoid abnormalities, normal renal function, normal liver enzymes. Negative troponin. UA consistent with UTI. Negative urine . IMAGING: HEAD WITHOUT CONTRAST (CT) CLINICAL HISTORY: 47 years-old Female with high BP, loss of hearing left ear. Elevated blood pressure with left-sided hearing loss TECHNIQUE: Multiple axial CT images of the head were obtained without contrast. A dose lowering technique was utilized adhering to the principles of ALARA. CT DOSE: 690.05 mGycm COMPARISON: CT head 07/30/2017. FINDINGS: No acute intracranial hemorrhage, midline shift, intracranial mass, hydrocephalus, territorial ischemia or abnormal extra-axial collection. Encephalomalacia of the left cerebellar hemisphere redemonstrated suggesting remote insult. The calvarium is intact. The paranasal sinuses, mastoid air cells, and middle ear cavities are clear. IMPRESSION: 1. No acute intracranial abnormality. 2. Encephalomalacia of the left cerebellar hemisphere again seen suggesting sequela of remote insult. ----- CHEST ONE VIEW PORTABLE CLINICAL HISTORY: 47 years-old Female presenting with severe hypertension. TECHNIQUE: Portable upright AP view of the chest was obtained. COMPARISON: 03/23/2017. FINDINGS: Cardiomediastinal silhouette normal. Lungs and pleural spaces clear. Osseous structures normal. Upper abdomen normal. IMPRESSION: 1. No acute cardiopulmonary disease. EKG: Shows sinus tachycardia at a rate of 106 bpm, with nonspecific T-wave abnormalities in the lateral leads, no significant change compared to previous EKG of 07/30/2017 by my interpretation. MEDICATION RECONCILIATION: I attest that I have personally reviewed the patient 's current medication list. INITIAL VITAL SIGNS REVIEW: I reviewed the patient's initial vital signs and interpret them as follows: T: Afebrile; BP: Hypertensive; HR: Tachycardic; RR : Within normal limits; Pulse Ox: Within normal limits on room air. Blood pressure screening: The patient was found to have an elevated blood pressure and was referred to their primary doctor for recheck and further treatment. SUMMARY: Patient was evaluated at bedside, history and physical exam performed. Patient alert and oriented, no acute distress, resting, and stretcher. Neurologic exam is normal with no focal deficits. TMs bilaterally appear normal with no occlusion or signs of infection. Patient does appear moderately dehydrated on exam with dry mucous membranes and dry skin. EKG reviewed at bedside, no acute ischemic changes noted. Orders were placed at bedside for labs, UA, IV fluids for hydration, chest x-ray , CT brain to evaluate for hypertension. Patient discussed with Dr. Jennings, who agrees with my assessment and plan. Labs and imaging reviewed as above, no significant abnormalities. She is noted to be mildly hypokalemic, this was orally repleted. Patient reassessed multiple times throughout ED stay, she reports that she is feeling much better, and her blood pressure has normalized after IV fluids. She reports that her hearing has returned to normal. She continues to deny any headaches, vision changes, neck pain, chest pain, shortness of breath, or dizziness. Patient was updated on all results and plan for discharge, she was encouraged to follow closely with her primary care provider for close management of her blood pressure. Patient was also given strict return precautions should her symptoms worsen, she verbalized understanding. Patient was discharged home in stable condition and ambulatory. Problem List Medical Problems: (1) Asthma Status: Chronic (2) Bleeding Status: Resolved (3) Empyema Status: Chronic (4) HTN (hypertension) Status: Chronic (5) Kidney stone Status: Resolved Current/Historical Medications Scheduled Cephalexin Monohydrate (Keflex), 500 MG PO BID Cholecalciferol (Vitamin D3), 1 CAP PO DAILY Diltiazem HCl Coated Beads (Diltiazem HCl ER), 1 TAB PO DAILY Escitalopram Oxalate (Lexapro), 10 MG PO DAILY Ferrous Sulfate (Iron), 1 TAB PO BID Hydrochlorothiazide (Hctz), 25 MG PO DAILY Mometasone Furoate-Formoterol (Dulera 200/5 Mcg), 2 PUFFS INH BID Quetiapine Fumarate (Seroquel), 100 MG PO DAILY Scheduled PRN Albuterol Hfa (Ventolin Hfa), 2-4 PUFFS INH Q6H PRN for Shortness of Breath Allergies Coded Allergies: Sulfamethoxazole w/Trimethoprim (Unverified Allergy, Severe, ANAPHYLAXIS, 08/06/17) Codeine (Unverified Allergy, Unknown, HIVES, 08/06/17) Shellfish Allergy (Unverified Allergy, Unknown, ., 08/06/17) Sulfa Drugs (Unverified Allergy, Unknown, HIVES, 08/06/17) Vital Signs Date Time Temp Pulse Resp B/P (MAP) Pulse Ox O2 Delivery O2 Flow Rate FiO2 08/06/17 16:19 92 16 153/106 98 08/06/17 15:48 92 16 153/106 98 Room Air 08/06/17 14:23 87 18 137/99 98 Room Air 08/06/17 13:28 98 Room Air 08/06/17 13:27 98 Room Air 08/06/17 13:16 104 08/06/17 12:14 36.8 116 18 153/110 98 Laboratory Results 08/06/17 13:15 Red Blood Count 5.30, Mean Corpuscular Volume 85.5, Mean Corpuscular Hemoglobin 29.6, Mean Corpuscular Hemoglobin Concent 34.7, Mean Platelet Volume 10.2, Neutrophils (%) (Auto) 82.0, Lymphocytes (%) (Auto) 11.9, Monocytes (%) (Auto) 5.0, Eosinophils (%) (Auto) 0.5, Basophils (%) (Auto) 0.2, Neutrophils # (Auto) 8.24, Lymphocytes # (Auto) 1.20, Monocytes # (Auto) 0.50, Eosinophils # (Auto) 0.05, Basophils # (Auto) 0.02 08/06/17 13:15 Test 08/06/17 13:15 08/06/17 13:58 White Blood Count 10.05 K/uL (4.8-10.8) Red Blood Count 5.30 M/uL (4.2-5.4) Hemoglobin 15.7 g/dL (12.0-16.0) Hematocrit 45.3 % (37-47) Mean Corpuscular Volume 85.5 fL (80-100) Mean Corpuscular Hemoglobin 29.6 pg (25-34) Mean Corpuscular Hemoglobin Concent 34.7 g/dl (32-36) Platelet Count 316 K/uL (130-400) Mean Platelet Volume 10.2 fL (7.4-10.4) Neutrophils (%) (Auto) 82.0 % Lymphocytes (%) (Auto) 11.9 % Monocytes (%) (Auto) 5.0 % Eosinophils (%) (Auto) 0.5 % Basophils (%) (Auto) 0.2 % Neutrophils # (Auto) 8.24 K/uL (1.4-6.5) Lymphocytes # (Auto) 1.20 K/uL (1.2-3.4) Monocytes # (Auto) 0.50 K/uL (0.11-0.59) Eosinophils # (Auto) 0.05 K/uL (0-0.5) Basophils # (Auto) 0.02 K/uL (0-0.2) RDW Standard Deviation 52.7 fL (36.4-46.3) RDW Coefficient of Variation 16.6 % (11.5-14.5) Immature Granulocyte % (Auto) 0.4 % Immature Granulocyte # (Auto) 0.04 K/uL (0.00-0.02) Prothrombin Time 10.5 SECONDS (9.0-12.0) Prothromb Time International Ratio 1.0 (0.9-1.1) Activated Partial Thromboplast Time 25.9 SECONDS (21.0-31.0) Partial Thromboplastin Ratio 1.0 Anion Gap 8.0 mmol/L (3-11) Est Creatinine Clear Calc Drug Dose 78.7 ml/min Estimated GFR () 75.9 Estimated GFR (Non- 65.5 BUN/Creatinine Ratio 10.5 (10-20) Calcium Level 9.2 mg/dl (8.5-10.1) Total Bilirubin 1.0 mg/dl (0.2-1) Direct Bilirubin 0.2 mg/dl (0-0.2) Aspartate Amino Transf (AST/SGOT) 14 U/L (15-37) Alanine Aminotransferase (ALT/SGPT) 23 U/L (12-78) Alkaline Phosphatase 89 U/L (45-117) Total Protein 8.5 gm/dl (6.4-8.2) Albumin 4.5 gm/dl (3.4-5.0) Lipase 126 U/L (73-393) Thyroid Stimulating Hormone (TSH) 1.390 uIu/ml (0.300-4.500) Urine Color YELLOW Urine Appearance CLEAR (CLEAR) Urine pH 7.0 (4.5-7.5) Urine Specific [place] 1.007 (1.000-1.030) Urine Protein NEG (NEG) Urine Glucose (UA) NEG (NEG) Urine Ketones NEG (NEG) Urine Occult Blood TRACE (NEG) Urine Nitrite POS (NEG) Urine Bilirubin NEG (NEG) Urine Urobilinogen NEG (NEG) Urine Leukocyte Esterase SMALL (NEG) Urine WBC (Auto) 5-10 /hpf (0-5) Urine RBC (Auto) 0-4 /hpf (0-4) Urine Hyaline Casts (Auto) 0 /lpf (0-5) Urine Epithelial Cells (Auto) 20-30 /lpf (0-5) Urine Bacteria (Auto) 4+ (NEG) Urine Test NEG (NEG) Medications Administered Medications (Trade) Dose Ordered Sig/Rian Route Start Time Stop Time Status Last Admin Dose Admin Sodium Chloride 1,000 ml @ 999 mls/hr Q1H1M STAT IV 08/06/17 13:26 08/06/17 14:26 DC 08/06/17 13:55 999 MLS/HR Cephalexin Monohydrate (Keflex Cap) 500 mg NOW ONCE PO 08/06/17 15:45 08/06/17 15:46 DC 08/06/17 15:46 500 MG Potassium Chloride (Klor-Con M10) 60 meq NOW STAT PO 08/06/17 15:56 08/06/17 15:58 DC 08/06/17 16:01 60 MEQ Departure Information Impression Primary Impression: HTN (hypertension) Additional Impressions: Hypokalemia UTI (urinary tract infection) Dispostion Home / Self-Care Condition GOOD Prescriptions Cephalexin Monohydrate (Keflex) 500 Mg Cap 500 MG PO BID for 7 Days, #14 CAP Prov: [place],Allegra B., INJECTION MOLDING ENGINEER 08/06/17 Referrals Harmony Sadler (PCP) Patient Instructions ED Diet High Potassium, ED HTN Established, ED UTI Cystitis Female, My [facility] Additional Instructions You have been treated in the Emergency Department for your hypertension, low potassium, and a Urinary Tract Infection (UTI). Continue your prescribed blood pressure medications as directed by your primary care provider. Keep your scheduled appointment with your primary care provider for follow-up, and keep your scheduled appointment for your MRI. You have been prescribed Keflex to be taken twice a day for 7 days. This is an antibiotic to treat your UTI. All antibiotics have the potential to cause diarrhea. Stop this medication and contact a medical provider if you were to develop any significant adverse side effects including: wheezing, shortness of breath, passing out, vomiting, or a diffuse rash. Always take antibiotics as directed and COMPLETE the ENTIRE course regardless of the improvement of your symptoms. Drink plenty of fluids to stay well hydrated. Please follow-up with your Primary Care Provider in the next few days for recheck. You should also have your potassium level rechecked in the next week. Return to the emergency department for worsening symptoms including severe headache, blurry or double vision, persistent vomiting and unable to tolerate fluids, chest pain, shortness of breath, severe dizziness or passing out, fever/ chills, or any other concerns. Work Instructions Return To Work: 2 days Problem Qualifiers Primary Impression: HTN (hypertension) Hypertension type: essential hypertension Qualified Codes: I10 - Essential ( primary) hypertension Additional Impressions: UTI (urinary tract infection) Urinary tract infection type: acute cystitis Hematuria presence: with hematuria Qualified Codes: N30.01 - Acute cystitis with hematuria
--- NOTE | 2017-08-06 13:50 | DIAGNOSTIC IMAGING REPORT ---
HEAD WITHOUT CONTRAST (CT) CLINICAL HISTORY: 47 years-old Female with high BP, loss of hearing left ear. Elevated blood pressure with left-sided hearing loss TECHNIQUE: Multiple axial CT images of the head were obtained without contrast. A dose lowering technique was utilized adhering to the principles of ALARA. CT DOSE: 690.05 mGycm COMPARISON: CT head 07/30/2017. FINDINGS: No acute intracranial hemorrhage, midline shift, intracranial mass, hydrocephalus, territorial ischemia or abnormal extra-axial collection. Encephalomalacia of the left cerebellar hemisphere redemonstrated suggesting remote insult. The calvarium is intact. The paranasal sinuses, mastoid air cells, and middle ear cavities are clear. IMPRESSION: 1. No acute intracranial abnormality. 2. Encephalomalacia of the left cerebellar hemisphere again seen suggesting sequela of remote insult. The above report was generated using voice recognition software. It may contain grammatical, syntax or spelling errors. Electronically signed by: Hemant Barrios M.D. 08/06/2017 1:49 PM Dictated Date/Time: 08/06/2017 1:47 PM
[2017-08-06 13:51] LABS: PTT PATIENT 25.9 SECONDS (21.0-31.0)
[2017-08-06 13:55] LABS: ALBUMIN 4.5 gm/dl (3.4-5.0); CALCIUM 9.2 mg/dl (8.5-10.1); CREATININE 1.02 mg/dl (0.60-1.20)
[2017-08-06 14:06] LABS: TOTAL PROTEIN 8.5 gm/dl (6.4-8.2)
--- NOTE | 2017-08-06 14:15 | DIAGNOSTIC IMAGING REPORT ---
CHEST ONE VIEW PORTABLE CLINICAL HISTORY: 47 years-old Female presenting with severe hypertension. TECHNIQUE: Portable upright AP view of the chest was obtained. COMPARISON: 03/23/2017. FINDINGS: Cardiomediastinal silhouette normal. Lungs and pleural spaces clear. Osseous structures normal. Upper abdomen normal. IMPRESSION: 1. No acute cardiopulmonary disease. Electronically signed by: Duane Tan M.D. 08/06/2017 2:13 PM Dictated Date/Time: 08/06/2017 2:13 PM
[2017-08-06] MEDS ORDERED: CEPHALEXIN MONOHYDRATE 250 MG CAP PO ONE (15:45)
[2017-08-06] MEDS ORDERED: POTASSIUM CHLORIDE 10 MEQ TABCR PO STA (15:56)
[2017-08-06] MEDS ORDERED: CEPH500C PO (15:58)
[2017-08-06 16:19] VITALS: BP 153/106; PULSE 92; O2SAT 98
--- NOTE | 2017-08-08 14:02 | Pharmacy Progress Note ---
ED Pharmacist Culture FollowUp Date of Service: Aug 08, 2017. Patient was sent home with a prescription for Keflex 500mg PO BID x 7 days, which should cover the e coli growing from the patient's URINE culture.
== END 2017-08-06 16:20 | disposition home or self-care (01) ==
LOC: C.EDB 12:13 → C.EDC 16:20
DX: I10 Essential (primary) hypertension (principal); E87.6 Hypokalemia; N30.01 Acute cystitis with hematuria; F31.9 Bipolar disorder, unspecified; F41.9 Anxiety disorder, unspecified; J45.909 Unspecified asthma, uncomplicated; Z87.442 Personal history of urinary calculi; Z86.73 Personal history of transient ischemic attack (TIA), and cerebral infarction without residual deficits; F17.210 Nicotine dependence, cigarettes, uncomplicated; Z79.899 Other long term (current) drug therapy; Z88.2 Allergy status to sulfonamides; Z88.5 Allergy status to narcotic agent; Z91.013 Allergy to seafood

== ENCOUNTER → 2017-08-12 | Outpatient (CLI) | payer OTHER ==
[~2017-08-12] MED LIST changes: +CEPH500C PO; +GADAVIST IV PRN
--- NOTE | 2017-08-12 13:01 | DIAGNOSTIC IMAGING REPORT ---
MRI OF THE BRAIN WITHOUT AND WITH IV CONTRAST CLINICAL HISTORY: I63.9 CVA (cerebrovascular accident) COMPARISON STUDY: Noncontrast head CT dated 08/06/2017 TECHNIQUE: MRI of the brain was performed from the vertex to the skull base utilizing various T1 and T2 weighted sequences. Following the IV administration of 9 mL of Gadavist contrast, additional enhanced images were obtained. FINDINGS: Sagittal T1, axial diffusion, proton density and T2 weighted axial, coronal FLAIR, and pre and post axial T1-weighted images were acquired. These were supplemented with post gadolinium coronal T1 weighted images. No intra or extra-axial mass lesions are visualized. Axial diffusion-weighted images reveal no evidence of acute or subacute infarction. There is no evidence of ventricular dilatation. Proton density T2-weighted and FLAIR images reveal an area of left cerebellar encephalomalacia, likely secondary to a prior infarct. There are no abnormal flow voids. There is no evidence of pathologic enhancement. IMPRESSION: 1. No acute intracranial findings 2. No evidence of acute or subacute infarction 3. No evidence of intracranial mass 4. Focus of left cerebellar encephalomalacia, likely secondary to an old infarct Electronically signed by: Edwin Sahni M.D. 08/12/2017 1:00 PM Dictated Date/Time: 08/12/2017 12:57 PM
== END | disposition home or self-care (01) ==
LOC: C.MRI 12:07
PROVIDERS: ATTEND Psychiatry & Neurology Neurology
DX: I63.9 Cerebral infarction, unspecified (principal); I10 Essential (primary) hypertension